=== PATIENT | female | born 1970 | race Two or more races ===

== ENCOUNTER 2022-10-10 18:09 | Emergency (ER) | payer OTHER ==
[~2022-10-10] VITALS: Ht 162.6 cm; Wt 59.0 kg
[2022-10-10] MEDS ORDERED: AMLODIPINE-OLM1 EAC2 PO (18:40)
[2022-10-10] MEDS ORDERED: GABAPENTIN300 M2 PO (18:40)
[2022-10-10] MEDS ORDERED: ATORVASTATIN CA40 MG PO (18:40)
[2022-10-10] MEDS ORDERED: ADULT LOW DOSE81 M1 PO (18:40)
[2022-10-10] MEDS ORDERED: NABUMETONE500 MG PO (18:41)
[2022-10-10] MEDS ORDERED: LANTUS SOL100 UNIT/1 SQ (18:44)
[2022-10-10] MEDS ORDERED: ZOFRAN8 MG PO (21:45)
[2022-10-10] MEDS ORDERED: INTESTINEX680 M1 PO (21:45)
[2022-10-10] MEDS ORDERED: PEPCID AC20 MG PO (21:45)
== END 2022-10-10 21:58 | disposition home or self-care (01) ==
LOC: ER 18:09
DX: K52.9 Noninfective gastroenteritis and colitis, unspecified (principal); Z88.2 Allergy status to sulfonamides; E11.9 Type 2 diabetes mellitus without complications

== ENCOUNTER 2023-03-08 14:48 | Emergency (ER) | payer OTHER ==
[~2023-03-08] VITALS: Ht 167.6 cm; Wt 63.5 kg
[~2023-03-08 14:48] MED LIST: ADULT LOW DOSE81 M1 PO; AMLODIPINE-OLM1 EAC2 PO; ATORVASTATIN CA40 MG PO; GABAPENTIN300 M2 PO; INTESTINEX680 M1 PO; LANTUS SOL100 UNIT/1 SQ; NABUMETONE500 MG PO; PEPCID AC20 MG PO; ZOFRAN8 MG PO
[2023-03-08] MEDS ORDERED: GLUMETZA500 MG PO (15:13)
== END 2023-03-08 17:50 | disposition home or self-care (01) ==
LOC: ER 14:48
DX: I80.01 Phlebitis and thrombophlebitis of superficial vessels of right lower extremity (principal); Z88.2 Allergy status to sulfonamides